=== PATIENT | female | born 1985 | race Two or more races ===

== ENCOUNTER 2016-11-09 14:00 | Emergency (ER) | payer MEDICAID ==
[~2016-11-09] VITALS: Ht 160 cm; Wt 56.7 kg
--- NOTE | 2016-11-09 14:47 | NUR ---
Patient discharged to home in stable conditon. Written and verbal after care instructions given. Patient verbalizes understanding of instructions.EUBREATHING.
== END 2016-11-09 15:01 | disposition home or self-care (01) ==
LOC: ER 14:00
DX: Z76.0 Encounter for issue of repeat prescription (principal); R06.02 Shortness of breath; J45.909 Unspecified asthma, uncomplicated
CPT/HCPCS: A4663

== ENCOUNTER 2017-10-01 18:41 | Emergency (ER) | payer MEDICAID ==
[~2017-10-01] VITALS: Ht 165.1 cm; Wt 50.3 kg
[2017-10-01] MEDS ORDERED: METR500T PO (18:49)
--- NOTE | 2017-10-01 19:13 | NUR ---
PT WALKED INTO ER CO VAGINAL DISCOMFORT FROM YESTERDAY , WEIGHT LOSS OF 3-4 LBS AND HAIR LOSS FOR A FEW WEEKS. PT WAS SEEN AT [facility], WAS EXAMINED AND WAS PLACED ON FLAGYL FOR BACTERIAL VAGINITIS. PT IS HER NOW FOR SOME BLOOD WORK AND C HECKING OF THYROID, BECAUSE PT HAS FAMILYMEMBERS WITH THYROID PROBLEM.
[2017-10-01 19:28] LABS: BASOPHILS # (AUTO) 0.1 K/uL (0.0-8.0); BASOPHILS % (AUTO) 0.6 % (0.0-2.0); EOSINOPHILS # (AUTO) 0.1 K/uL (0.0-0.7); EOSINOPHILS % (AUTO) 0.7 % (0.0-7.0); HEMATOCRIT 39.3 % (31.2-41.9); HEMOGLOBIN 13.8 g/dL (10.9-14.3); LYMPHOCYTES # (AUTO) 1.9 K/uL (20.0-40.0); LYMPHOCYTES % (AUTO) 18.8 % (20.5-51.5); MEAN CORPUSCULAR HGB CONC 35 g/dL (32.3-35.6); MONOCYTES # (AUTO) 0.5 K/uL (2.0-10.0); MONOCYTES % (AUTO) 5.3 % (0.0-11.0); NEUTROPHILS # (AUTO) 7.4 K/uL (1.8-8.9); NEUTROPHILS % (AUTO) 74.6 % (38.5-71.5); PLATELET COUNT (AUTO) 324 K/uL (179-408); RED BLOOD CELL COUNT(AUTO) 4.31 MIL/uL (3.63-4.92)
[2017-10-01 19:31] LABS: *BILIRUBIN,URIN NEGATIVE (NEGATIVE); *BLOOD, URINE NEGATIVE (NEGATIVE); *CLARITY,URINE CLEAR (CLEAR); *COLOR,URINE YELLOW (YELLOW); *KETONES,URINE NEGATIVE (NEGATIVE); *PROTEIN,URINE NEGATIVE (NEGATIVE); *UROBILINOGEN,URINE 0.2 E.U./dl (NORMAL); LEUKOCYTE ESTERASE ,URINE NEGATIVE (NEGATIVE); NITRITE, URINE NEGATIVE (NEGATIVE); PH,URINE 5.5 (5.0-8.0); UGLUCOSE NEGATIVE (NEGATIVE)
[2017-10-01 19:35] LABS: CREATININE 0.9 mg/dL (0.6-1.3); POTASSIUM 3.7 mmol/L (3.5-5.1)
[2017-10-01 19:41] LABS: *URINE HCG, QUAL NEGATIVE (NEGATIVE); MUCUS,URINE MANY /LPF (0-FEW); SQUAMOUS EPITHELIAL CELL,UR FEW /HPF (NONE SEEN); URINE AMORPHOUS URATE FEW /HPF; WBC,URINE 0-3 /HPF (0-3)
[2017-10-01 19:41] LABS: BILIRUBIN,TOTAL 0.3 mg/dL (0.2-1.0); TOTAL PROTEIN, SERUM 7.5 g/dL (6.4-8.2)
--- NOTE | 2017-10-01 19:45 | NUR ---
PATIENT IN ROOM WITH NO DISTRESS NOTED
[2017-10-01 19:48] LABS: THYROID STIMULATING HORMONE 0.614 mIU/mL (0.358-3.740)
--- NOTE | 2017-10-01 20:54 | NUR ---
Patient discharged to home in stable conditon. Written and verbal after care instructions given. Patient verbalizes understanding of instructions. WALKED OUT OF ER WITH NO DISTRESS NOTED
[2017-10-01 20:56] VITALS: BP 110/70
== END 2017-10-01 20:57 | disposition home or self-care (01) ==
LOC: ER 18:42
DX: R10.30 Lower abdominal pain, unspecified (principal); J45.909 Unspecified asthma, uncomplicated; Z79.899 Other long term (current) drug therapy
CPT/HCPCS: 36415; 74022; 80053; 81001; 83690; 84443; 84703; 85025; 85651; 86140; 99285; A4663

== ENCOUNTER 2018-05-02 15:01 | Emergency (ER) | payer MEDICAID ==
[~2018-05-02] VITALS: Ht 165.1 cm; Wt 52.2 kg
[~2018-05-02 15:01] MED LIST: METR500T PO
--- NOTE | 2018-05-02 15:46 | NUR ---
Patient discharged to home in stable conditon. Written and verbal after care instructions given. Patient verbalizes understanding of instructions.
[2018-05-02 15:47] VITALS: BP 105/61
== END 2018-05-02 15:49 | disposition home or self-care (01) ==
LOC: ER 15:03
DX: K12.0 Recurrent oral aphthae (principal); J45.909 Unspecified asthma, uncomplicated; Z79.899 Other long term (current) drug therapy
CPT/HCPCS: A4663

== ENCOUNTER 2018-08-23 17:44 | Emergency (ER) | payer MEDICAID ==
[~2018-08-23] VITALS: Ht 167.6 cm; Wt 52.2 kg
--- NOTE | 2018-08-23 18:39 | NUR ---
PT IS IN ROOM #1A. DR HALL EVALUATED THE PT.
[2018-08-23 19:05] LABS: BASOPHILS # (AUTO) 0.1 K/uL (0.0-8.0); BASOPHILS % (AUTO) 0.7 % (0.0-2.0); EOSINOPHILS # (AUTO) 0.1 K/uL (0.0-0.7); EOSINOPHILS % (AUTO) 1.3 % (0.0-7.0); HEMOGLOBIN 14.7 g/dL (10.9-14.3); LYMPHOCYTES # (AUTO) 2.4 K/uL (20.0-40.0); LYMPHOCYTES % (AUTO) 23.4 % (20.5-51.5); MEAN CORPUSCULAR HEMOGLOBIN 31.4 uug (24.7-32.8); MEAN CORPUSCULAR HGB CONC 34 g/dL (32.3-35.6); MONOCYTES % (AUTO) 9.4 % (0.0-11.0); NEUTROPHILS # (AUTO) 6.7 K/uL (1.8-8.9); NEUTROPHILS % (AUTO) 65.2 % (38.5-71.5); PLATELET COUNT (AUTO) 360 K/uL (179-408); RED BLOOD CELL COUNT(AUTO) 4.68 MIL/uL (3.63-4.92); WHITE BLOOD COUNT (AUTO) 10.3 K/uL (3.8-11.8)
[2018-08-23 19:14] LABS: CREATININE 0.9 mg/dL (0.6-1.3)
--- NOTE | 2018-08-23 19:14 | NUR ---
Pt provided urine sample, sent to lab.
--- NOTE | 2018-08-23 19:14 | NUR ---
Pt out of ER for CT.
[2018-08-23 19:20] LABS: *URINE HCG, QUAL NEGATIVE (NEGATIVE)
--- NOTE | 2018-08-23 19:30 | NUR ---
Pt back to ER from CT.
--- NOTE | 2018-08-23 20:19 | NUR ---
Patient discharged to home in stable conditon. Written and verbal after care instructions given. Patient verbalizes understanding of instructions. Pt ambulated out of ER with steady gait, no acute signs of distress, VSS, all belongings taken.
[2018-08-23 20:20] VITALS: BP 100/75
== END 2018-08-23 20:21 | disposition home or self-care (01) ==
LOC: ER 17:46
DX: R51 Headache (principal); J45.909 Unspecified asthma, uncomplicated; Z79.899 Other long term (current) drug therapy
CPT/HCPCS: 36415; 70450; 84443; 84703; 85025; A4663

== ENCOUNTER 2019-03-30 17:13 | Emergency (ER) | payer MEDICAID ==
[~2019-03-30] VITALS: Ht 165.1 cm; Wt 50.3 kg
[2019-03-30] MEDS ORDERED: ACETAMINOPHEN ES 500 MG TABLET ONE (17:36)
[2019-03-30] MEDS ORDERED: ONDANSETRON ODT 4 MG TAB.RAPDIS ONE (17:36)
[2019-03-30] MEDS ORDERED: ONDANSETRON ODT 4 MG TAB.RAPDIS SL ONE (17:45)
[2019-03-30] MEDS ORDERED: ACETAMINOPHEN ES 500 MG TABLET PO ONE (17:45)
[2019-03-30 17:46] LABS: *BILIRUBIN,URIN NEGATIVE (NEGATIVE); *BLOOD, URINE NEGATIVE (NEGATIVE); *COLOR,URINE YELLOW (YELLOW); *KETONES,URINE NEGATIVE (NEGATIVE); *URINE HCG, QUAL NEGATIVE (NEGATIVE); *UROBILINOGEN,URINE 0.2 E.U./dl (NORMAL); LEUKOCYTE ESTERASE ,URINE NEGATIVE (NEGATIVE); NITRITE, URINE NEGATIVE (NEGATIVE); PH,URINE 6.5 (5.0-8.0); UGLUCOSE NEGATIVE (NEGATIVE)
[2019-03-30 17:50] LABS: *CLARITY,URINE SLIGHTLY HAZY (CLEAR)
[2019-03-30 17:51] LABS: WBC,URINE 0-3 /HPF (0-3)
[2019-03-30 17:52] LABS: BACTERIA,URINE FEW /HPF (NONE SEEN); MUCUS,URINE MANY /LPF (0-FEW); SQUAMOUS EPITHELIAL CELL,UR MODERATE /HPF (NONE SEEN)
[2019-03-30] MEDS ORDERED: IV NORMAL SALINE 1000 ML BAG IV ONE (18:00)
[2019-03-30 18:39] VITALS: BP 101/63
--- NOTE | 2019-03-30 18:40 | NUR ---
Patient discharged to home in stable conditon. Written and verbal after care instructions given. Patient verbalizes understanding of instructions.
== END 2019-03-30 18:41 | disposition home or self-care (01) ==
LOC: ER 17:14
DX: A08.4 Viral intestinal infection, unspecified (principal); J45.909 Unspecified asthma, uncomplicated; Z79.899 Other long term (current) drug therapy
CPT/HCPCS: 84703; A4663; A9150; J7030; Q0162

== ENCOUNTER 2020-06-03 18:43 | Emergency (ER) | payer MEDICAID ==
[~2020-06-03] VITALS: Ht 165.1 cm; Wt 50.3 kg
[2020-06-03] MEDS ORDERED: ACETAMINOPHEN 325 MG TABLET PO ONE (19:00)
[2020-06-03 19:06] LABS: *BILIRUBIN,URIN NEGATIVE (NEGATIVE); *BLOOD, URINE 2+ (NEGATIVE); *COLOR,URINE YELLOW (YELLOW); *KETONES,URINE NEGATIVE (NEGATIVE); *UROBILINOGEN,URINE 0.2 E.U./dl (NORMAL); LEUKOCYTE ESTERASE ,URINE 1+ (NEGATIVE); NITRITE, URINE POSITIVE (NEGATIVE); PH,URINE 5.5 (5.0-8.0); UGLUCOSE NEGATIVE (NEGATIVE)
[2020-06-03 19:07] LABS: *URINE HCG, QUAL NEGATIVE (NEGATIVE)
--- NOTE | 2020-06-03 19:11 | NUR ---
Assumed care of patient from day shift TANJA Anaya. Patient AAOx4. In no acute distress. Denies any pain at this time and refused ordered Tylenol. Dr Tay aware.
[2020-06-03] MEDS ORDERED: ACETAMINOPHEN 325 MG TABLET ONE (19:13)
[2020-06-03 19:18] LABS: *AMPHETAMINE, URINE NEGATIVE (NEGATIVE); *CANNABINOID, URINE NEGATIVE (NEGATIVE); *COCCAINE, URINE NEGATIVE (NEGATIVE); *OPIATE, URINE NEGATIVE (NEGATIVE); *PHENCYCLIDINE SCREEN,URINE NEGATIVE (NEGATIVE)
[2020-06-03 19:21] LABS: *CLARITY,URINE HAZY (CLEAR); BACTERIA,URINE MANY /HPF (NONE SEEN); SQUAMOUS EPITHELIAL CELL,UR FEW /HPF (NONE SEEN); WBC,URINE 20-50 /HPF (0-3)
[2020-06-03] MEDS ORDERED: SULF1TAB48 PO (19:27)
[2020-06-03] MEDS ORDERED: SULFAMETH/TRIMETH 800/160 MG TABLET PO ONE (19:30)
[2020-06-03] MEDS ORDERED: SULFAMETH/TRIMETH 800/160 MG TABLET ONE (19:31)
--- NOTE | 2020-06-03 20:00 | NUR ---
Patient discharged to home in stable condition. Written and verbal after care instructions given. Patient verbalizes understanding of instructions. Stressed follow up or return to ER for worsening s/s. Pt ambulated out of the ER with steady gait. All belongings with pt.
[2020-06-03 20:03] VITALS: BP 120/60
== END 2020-06-03 20:00 | disposition home or self-care (01) ==
LOC: ER 18:44
DX: N39.0 Urinary tract infection, site not specified (principal); J45.909 Unspecified asthma, uncomplicated; Z87.440 Personal history of urinary (tract) infections
CPT/HCPCS: 84703; 87077; 87086; A4663

== ENCOUNTER 2021-02-06 11:12 | Emergency (ER) | payer MEDICAID ==
[~2021-02-06] VITALS: Ht 165.1 cm; Wt 63.5 kg
[~2021-02-06 11:12] MED LIST changes: -METR500T PO; +SULF1TAB48 PO
[2021-02-06] MEDS ORDERED: FLUORESCEIN SODIUM 1 MG STRIP OP ONE (11:30)
[2021-02-06] MEDS ORDERED: TETRACAINE HCL 0.5% OPHT DROP 2 ML BOTTLE OP ONE (11:30)
[2021-02-06] MEDS ORDERED: TETRACAINE HCL 0.5% OPHT DROP 2 ML BOTTLE ONE (11:31)
[2021-02-06] MEDS ORDERED: FLUORESCEIN SODIUM 1 MG STRIP ONE ×2 (11:31→11:55)
[2021-02-06] MEDS ORDERED: SODIUM/POT/SOD CHL OPHT WASH 120 ML BOTTLE ONE (11:39)
[2021-02-06] MEDS ORDERED: SODIUM/POT/SOD CHL OPHT WASH 120 ML BOTTLE OP ONE (11:45)
[2021-02-06] MEDS ORDERED: CIPR5DRO EACHEYE (12:03)
--- NOTE | 2021-02-06 12:08 | NUR ---
Patient discharged to home in stable condition. Written and verbal after care instructions given. Patient verbalizes understanding of instructions. Stressed follow up or return to ER for worsening s/s.
== END 2021-02-06 12:12 | disposition home or self-care (01) ==
LOC: ER 11:12
DX: H18.892 Other specified disorders of cornea, left eye (principal); J45.909 Unspecified asthma, uncomplicated
CPT/HCPCS: A4663

== ENCOUNTER 2021-03-12 20:15 | Emergency (ER) | payer MEDICAID ==
[~2021-03-12] VITALS: Ht 165.1 cm; Wt 49.9 kg
[~2021-03-12 20:15] MED LIST changes: +CIPR5DRO EACHEYE
[2021-03-12 20:27] LABS: *BILIRUBIN,URIN NEGATIVE (NEGATIVE); *BLOOD, URINE 3+ (NEGATIVE); *CLARITY,URINE CLEAR (CLEAR); *COLOR,URINE LIGHT YELLOW (YELLOW); *KETONES,URINE NEGATIVE (NEGATIVE); *UROBILINOGEN,URINE 0.2 E.U./dl (NORMAL); LEUKOCYTE ESTERASE ,URINE 3+ (NEGATIVE); NITRITE, URINE NEGATIVE (NEGATIVE); UGLUCOSE NEGATIVE (NEGATIVE)
--- NOTE | 2021-03-12 20:27 | NUR ---
Patient arrived at the ER with c/o burning upon urination that started this AM.
[2021-03-12 20:31] LABS: *URINE HCG, QUAL NEGATIVE (NEGATIVE)
--- NOTE | 2021-03-12 20:31 | NUR ---
Dr. Jones on bedside for MSE.
[2021-03-12] MEDS ORDERED: PHEN-705 PO (20:44)
[2021-03-12] MEDS ORDERED: ONDANSETRON ODT 4 MG TAB.RAPDIS ONE (20:44)
[2021-03-12] MEDS ORDERED: NITR100C11 PO (20:44)
[2021-03-12] MEDS ORDERED: ONDANSETRON ODT 4 MG TAB.RAPDIS SL ONE (20:45)
[2021-03-12 20:47] LABS: BACTERIA,URINE FEW /HPF (NONE SEEN)
[2021-03-12 20:48] LABS: RBC,URINE 20-50 /HPF (0-3); SQUAMOUS EPITHELIAL CELL,UR NONE SEEN /HPF (NONE SEEN); WBC,URINE 20-50 /HPF (0-3)
[2021-03-12 20:58] VITALS: BP 108/66
--- NOTE | 2021-03-12 20:58 | NUR ---
Patient discharged to home in stable condition. Written and verbal after care instructions given. Patient verbalizes understanding of instructions. Stressed follow up or return to ER for worsening s/s. Patient ambulated fr the ER with steady gait. All belongings with patient.
== END 2021-03-12 20:59 | disposition home or self-care (01) ==
LOC: ER 20:15
DX: N39.0 Urinary tract infection, site not specified (principal)
CPT/HCPCS: 84703; 87086; A4663; Q0162

== ENCOUNTER 2021-04-09 18:40 | Emergency (ER) | payer MEDICAID ==
[~2021-04-09] VITALS: Ht 165.1 cm; Wt 50.3 kg
[~2021-04-09 18:40] MED LIST changes: +NITR100C11 PO; +PHEN-705 PO
[2021-04-09] MEDS ORDERED: CODE10LI PO (19:27)
[2021-04-09] MEDS ORDERED: IBUPROFEN 600 MG TABLET PO ONE (20:00)
[2021-04-09] MEDS ORDERED: ACETAMINOPHEN/CODEINE 120-12 MG PER 5 ML LIQUID UDC PO ONE (20:00)
[2021-04-09] MEDS ORDERED: ACETAMINOPHEN/CODEINE 120-12 MG PER 5 ML LIQUID UDC ONE (20:06)
[2021-04-09] MEDS ORDERED: IBUPROFEN 600 MG TABLET ONE (20:07)
[2021-04-09 20:45] VITALS: BP 121/79
== END 2021-04-09 20:40 | disposition home or self-care (01) ==
LOC: ER 18:41
DX: U07.1 COVID-19 (principal); J02.9 Acute pharyngitis, unspecified
CPT/HCPCS: 71045; 86403; 87070; 87400; A4663

== ENCOUNTER 2021-08-25 13:09 | Emergency (ER) | payer MEDICAID ==
[~2021-08-25] VITALS: Ht 165.1 cm; Wt 59.9 kg
[~2021-08-25 13:09] MED LIST changes: +CODE10LI PO
--- NOTE | 2021-08-25 13:24 | NUR ---
Dr Ch at the bedside for MSE.
[2021-08-25] MEDS ORDERED: PROM5SYR PO (14:12)
[2021-08-25] MEDS ORDERED: ALBU2.5V13 IH (14:12)
[2021-08-25 14:26] VITALS: BP 113/70
--- NOTE | 2021-08-25 14:27 | NUR ---
Patient discharged to home in stable condition with brisk steady gait. Written and verbal after care instructions given. Patient verbalized understanding and compliance of instructions. Stressed follow up with primary doctor or return to ER for worsening s/s.
== END 2021-08-25 14:27 | disposition home or self-care (01) ==
LOC: ER 13:09
DX: J20.9 Acute bronchitis, unspecified (principal); J04.0 Acute laryngitis; Z20.822 Contact with and (suspected) exposure to COVID-19
CPT/HCPCS: A4663

== ENCOUNTER 2022-08-27 23:48 | Emergency (ER) | payer MEDICAID ==
[~2022-08-27 23:48] MED LIST changes: +ALBU2.5V13 IH; +PROM5SYR PO
--- NOTE | 2022-08-28 01:21 | NUR ---
Patient was last seen about an hour by security. Left without being triaged.
== END 2022-08-28 01:23 | disposition left against medical advice (07) ==
LOC: ER 23:56
DX: Z53.21 Procedure and treatment not carried out due to patient leaving prior to being seen by health care provider (principal)

== ENCOUNTER 2024-03-30 21:50 | Emergency (ER) | payer MEDICAID, MEDICARE, OTHER ==
[~2024-03-30] VITALS: Ht 160 cm; Wt 61.2 kg
[2024-03-30 22:16] LABS: *URINE HCG, QUAL NEGATIVE (NEGATIVE)
[2024-03-30] MEDS ORDERED: ONDANSETRON 4 MG/2 ML VIAL ONE (22:17)
[2024-03-30] MEDS ORDERED: HYDROMORPHONE 1 MG/1 ML DISP.SYRIN ONE ×2 (22:17→23:01)
[2024-03-30 22:23] LABS: BASOPHILS % (AUTO) 0.3 % (0.0-2.0); EOSINOPHILS # (AUTO) 0.1 K/uL (0.0-0.7); EOSINOPHILS % (AUTO) 0.5 % (0.0-7.0); HEMATOCRIT 37.9 % (31.2-41.9); HEMOGLOBIN 13.3 g/dL (10.9-14.3); LYMPHOCYTES # (AUTO) 1.9 K/uL (0.8-4.8); LYMPHOCYTES % (AUTO) 12.9 % (20.5-51.5); MEAN CORPUSCULAR HEMOGLOBIN 31.3 uug (24.7-32.8); MEAN CORPUSCULAR HGB CONC 35 g/dL (32.3-35.6); MEAN CORPUSCULAR VOLUME 89.3 fL (75.5-95.3); MONOCYTES % (AUTO) 6.9 % (0.0-11.0); NEUTROPHILS % (AUTO) 79.4 % (38.5-71.5); PLATELET COUNT (AUTO) 347 K/uL (179-408); RED BLOOD CELL COUNT(AUTO) 4.24 MIL/uL (3.63-4.92); RED CELL DISTRIBUTION WIDTH 12.1 % (12.3-17.7); WHITE BLOOD COUNT (AUTO) 15.1 K/uL (3.8-11.8)
[2024-03-30 22:24] LABS: DIFFERENTIAL COMMENT 1
[2024-03-30] MEDS: IV NORMAL SALINE 1000 ML BAG IV ONE (22:29)
[2024-03-30] MEDS: HYDROMORPHONE 1 MG/1 ML DISP.SYRIN IV ONE ×2 (22:29→23:08)
[2024-03-30] MEDS: ONDANSETRON 4 MG/2 ML VIAL IV ONE (22:30)
[2024-03-30 22:46] LABS: ALBUMIN 3.9 g/dL (3.4-5.0); BILIRUBIN,DIRECT 0.1 mg/dL (0.0-0.2); BILIRUBIN,TOTAL 0.4 mg/dL (0.2-1.0); CALCIUM 9.4 mg/dL (8.5-10.1); CREATININE 1.2 mg/dL (0.6-1.3); POTASSIUM 3.6 mmol/L (3.5-5.1); TOTAL PROTEIN, SERUM 7.3 g/dL (6.4-8.2)
[2024-03-30] MEDS ORDERED: KETOROLAC TROMETHAMINE 30 MG INJ ONE (23:01)
[2024-03-30] MEDS: KETOROLAC TROMETHAMINE 30 MG INJ IVP ONE (23:08)
[2024-03-31] MEDS ORDERED: ONDA4TAB11 PO (01:22)
[2024-03-31] MEDS ORDERED: HYDR-3980 PO (01:22)
[2024-03-31] MEDS ORDERED: IBUP-1490 PO (01:22)
[2024-03-31 02:11] VITALS: BP 112/77; TEMP 98; O2SAT 98
== END 2024-03-31 02:12 | disposition home or self-care (01) ==
LOC: ER 21:54
DX: N20.1 Calculus of ureter (principal); R10.9 Unspecified abdominal pain; R10.2 Pelvic and perineal pain; J40 Bronchitis, not specified as acute or chronic; Z79.899 Other long term (current) drug therapy; Z60.2 Problems related to living alone
CPT/HCPCS: 99285; 74176; 96374; 96375; 96361; 80076; 80048; 84703; 83690; 85025; 36415; 96376; J1885; J2405; J1171 ×2; J7040; A4606; A4663